=== PATIENT | male | born 1985 | race Caucasian/White ===

== ENCOUNTER 2019-12-01 09:49 | Emergency (ER) | payer OTHER ==
[~2019-12-01] VITALS: Ht 188 cm; Wt 133.8 kg
[2019-12-01] MEDS ORDERED: BENZ100A PO (11:56)
[2019-12-01] MEDS ORDERED: ALBU90OI INH (11:56)
== END 2019-12-01 12:12 | disposition home or self-care (01) ==
LOC: ER 09:49
DX: J06.9 Acute upper respiratory infection, unspecified (principal); R51 Headache; Z88.8 Allergy status to other drugs, medicaments and biological substances; Z88.5 Allergy status to narcotic agent; F17.210 Nicotine dependence, cigarettes, uncomplicated
CPT/HCPCS: 71046; 87081; 87430; 99283-25; Q0163